=== PATIENT | male | born 1950 | race Caucasian/White ===

== ENCOUNTER 2016-09-14 10:31 | Inpatient (IN) | payer OTHER, MEDICAID ==
[~2016-09-14] VITALS: Ht 165.1 cm; Wt 70.8 kg
[2016-09-14] VITALS (17 sets, daily range): BP systolic 91–130; BP diastolic 57–77; PULSE 69–82; RESP 12–21; Ht 165.1 cm; Wt 70.8 kg
[~2016-09-14 10:31] MED LIST: DEXAMETHASONE 4 MG/ML 1 ML INJ ONE; FENTAnyl 50 MCG/ML VIAL ONE; GLYCOPYRROLATE 0.4 MG INJ ONE; LIDOCAINE 2% (SDV) 5 ML INJ ONE; MIDAZOLAM 1 MG/ML 2 ML INJ ONE; NEOSTIGMINE 3 MG/3 ML SYRINGE ONE; ONDANSETRON 4 MG INJ ONE; PROPOFOL 20 ML ONE; ROCURONIUM 50 MG INJ ONE; morphine SULFATE/PF (10 MG/10 ML) INJ ONE
[2016-09-14] MEDS ORDERED: OXYB5TAB7 PO (11:17)
[2016-09-14] MEDS ORDERED: CIPR500T4 PO (11:18)
[2016-09-14] MEDS ORDERED: ALLO300T2 PO (11:19)
[2016-09-14] MEDS ORDERED: LISI40TA9 PO (11:19)
[2016-09-14] MEDS ORDERED: FINA5TAB4 PO (11:20)
[2016-09-14] MEDS ORDERED: AMLO5TAB4 PO (11:20)
[2016-09-14] MEDS ORDERED: ATOR40TA68 PO (11:21)
[2016-09-14] MEDS ORDERED: CEFAZOLIN 2 GM/50 ML (PMX) 50 ML IVPB SCH (12:00)
[2016-09-14] MEDS ORDERED: CIPROFLOXACIN 400MG/D5W 200 ML ONE (12:27)
--- NOTE | 2016-09-14 12:28 | HPN ---
Date/Time of Note Date/Time of Note DATE: 09/14/16 TIME: 12:28 Interval H&P Admission Note Pt. seen H&P reviewed: No system changes BUCK DAVIS MD Sep 14, 2016 12:28
[2016-09-14] MEDS ORDERED: CIPROFLOXACIN 400MG/D5W 200 ML IVPB ONE (12:30)
[2016-09-14] MEDS ORDERED: DEXTROSE 5%-0.45% NACL 1,000 ML IV SCH (14:43)
--- NOTE | 2016-09-14 16:08 | OPR ---
DATE OF OPERATION: 09/14/2016 PREOPERATIVE DIAGNOSIS: Benign prostatic hypertrophy and urinary retention, and the patient does yancey ve a history of rectal cancer, underwent chemoradiation and awaiting surgery in about a month. POSTOPERATIVE DIAGNOSIS: Benign prostatic hypertrophy and urinary retention, and the patient does h ave a history of rectal cancer, underwent chemoradiation and awaiting surgery in about a month. OPERATION PERFORMED: Transurethral resection of the prostate. TECHNIQUE: The patient was brought to the operating room. General anesthesia was induced. The pat ient was positioned in the lithotomy position and given 400 mg of Cipro IV at the start of the proce dure. Time out was done. The patient was identified by his name, date, and the procedure. T hen, the Aggarwal catheter that he had was removed and the genital area was prepped and draped in the u sual sterile manner. The urethra was then dilated with the [place] dilator up to #30 Taj[place]. The #26 Taj[place] resectoscope sheath was introduced under direct vision through the penile urethra all th e way to the bladder. The prostate was found to be enlarged and obstructing and the ureteral orific es were identified and they were away from the area to resect. He did have bladder trabeculations. Then, the prostate was resected starting with the median lobe between the 5 and 7 o'clock position, then the left lateral lobe between the 5 and 12 o'clock position, and then the right lateral wall a nd the right lateral lobe, and then the anterior lobe. Then, I did check the apical area and resect ed any tissue that is obstructing. Then I did use the button to smooth out the resected area. Good hemostasis was obtained. At the end of the procedure, there were no prostatic chips in the bladder and the hemostasis was very good. At that moment I removed the resectoscope and inserted a Aggarwal c atheter 24 Tajik 3-way and inflated the balloon with 60 mL of sterile water, connected the Aggarwal to a drainage bag and started continuous bladder irrigation in the operating room. The patient transf erred to recovery room in stable and satisfactory condition. Dictated By: BUCK AVILA/DANICA Conf#: [id number] DID#: [id number]
--- NOTE | 2016-09-14 16:16 | HP ---
Date/Time of Note Date/Time of Note DATE: 09/14/16 TIME: 16:10 Assessment/Plan VTE Prophylaxis VTE Prophylaxis Intervention: SCD's Lines/Catheters [facility] IV Assessment/Plan Chief Complaint/Hosp Course Assessment and plan 1. BPH. Patient status post TURP procedure. Continue postop care. Analgesics as needed. Follow-up with urologist recommendations. Empirically on ciprofloxacin 2. Essential hypertension. Continue antihypertensives and adjust as needed. Stable at present. 3. Dyslipidemia. Follow-up on fasting lipid panel. Continue on statin medication for now. 4. History of gout. Continue on allopurinol Admission Process time: 40 minutes Discussed plan of care with Dr. Oquendo Problems: HPI/ROS Admit Date/Time Admit Date/Time Sep 14, 2016 at 10:31 Hx of Present Illness This is a 66-year-old male with past medical history of BPH, hypertension, disc edema, cancer with recent chemotherapy and radiation in July 2016 (seen by Dr. Zach Horta) who does follow up with Dr. Mayorga as outpatient for his BPH he did come to [facility] for elective surgery for TURP. Patient seen in recovery. Vital signs remained stable. No apparent distress noted. He did tolerate procedure well. Patient is remained afebrile. Cultures pending at this time. We will evaluate him for the aformentiond issues. PMH/Family/Social Past Medical History BPH, hypertension, disc edema, cancer with recent chemotherapy and radiation. Patient also does report having some type of colorectal surgery (details of this are unknown at this time) Family History Significant Family History: no pertinent family hx Social History Alcohol Use: occasionally Smoking Status: Former smoker Drug Use: none Exam/Review of Systems Vital Signs Vitals Vital Signs Date Time Temp Pulse Resp B/P Pulse Ox O2 Delivery O2 Flow Rate FiO2 09/14/16 15:35 80 18 105/70 100 Room Air 09/14/16 15:06 98.7 Exam Exam General: Comfortable at present. Alert and oriented Eyes: Pupils equal round. Anicteric sclera Neck: Supple nontender, no JVD Cardiac: Regular rate. S1-S2 auscultated Pulmonary: No adventitious lung sound GI: Soft nontender nondistended Genitourinary: Aggarwal catheter in place Extremities: No edema noted bilateral lower extremity Skin: CDI. Noted with vitiligo Neurologic: AL O 4 Medications Medications Current Medications Dextrose/Sodium Chloride (D5-1/2ns) 1,000 ml @ 50 mls/hr Q20H IV ; Start at 14:43 Allopurinol (Zyloprim) 300 mg DAILY PO ; Start 09/14/16 at 15:00 Amlodipine Besylate (Norvasc) 5 mg DAILY PO ; Start 09/14/16 at 15:00 Atorvastatin Calcium (Lipitor) 40 mg QHS PO ; Start 09/14/16 at 21:00 Ciprofloxacin (Cipro) 500 mg BID@06,18 PO ; Start 09/14/16 at 18:00 Lisinopril (Zestril) 40 mg DAILY PO ; Start 09/14/16 at 15:00 Ondansetron HCl (Zofran Inj) 4 mg Q6H PRN IV NAUSEA AND/OR VOMITING; Start 03/23 at 16:30 Acetaminophen (Tylenol Tab) 650 mg Q6H PRN PO PAIN LEVEL 1-3 OR FEVER; Start at 16:30 Acetaminophen (Tylenol Supp) 650 mg Q6H PRN [place] PAIN LEVEL 1-3 OR FEVER; Start 09/14/16 at 16:30 Acetaminophen/ Hydrocodone Bitart ([place] (5/325)) 1 tab Q6H PRN PO MODERATE PAIN LEVEL 4-6; Start 09/14/16 at 16:30 Acetaminophen/ Hydrocodone Bitart ([place] (5/325)) 2 tab Q6H PRN PO SEVERE PAIN LEVEL 7-10; Start 09/14/16 at 16:30 Morphine Sulfate (morphine) 2 mg Q4H PRN IV SEVERE PAIN LEVEL 7-10; Start 09/14 at 16:30 Docusate Sodium (Colace) 100 mg Q12H PRN PO CONSTIPATION; Start 09/14/16 at 16: 30 Magnesium Hydroxide (Milk Of Mag) 30 ml DAILY PRN PO CONSTIPATION; Start at 16:30 Bisacodyl (Dulcolax Supp) 10 mg DAILY PRN [place] CONSTIPATION; Start 09/14/16 at 16 :30 Famotidine (Pepcid Iv) 20 mg Q12 IV ; Start 09/14/16 at 21:00 DEMAR THOMPSON Sep 14, 2016 16:16
[2016-09-14] MEDS ORDERED: DOCUSATE SODIUM 100 MG CAP PO PRN (16:30)
[2016-09-14] MEDS ORDERED: BISACODYL 10 MG SUPP PR PRN (16:30)
[2016-09-14] MEDS ORDERED: ACETAMINOPHEN 325 MG TAB PO PRN (16:30)
[2016-09-14] MEDS ORDERED: ONDANSETRON 4 MG INJ IV PRN (16:30)
[2016-09-14] MEDS ORDERED: morphine 2 MG INJ IV PRN (16:30)
[2016-09-14] MEDS ORDERED: NACL 0.9% 3 ML SYG IV SCH (16:30)
[2016-09-14] MEDS ORDERED: ACETAMINOPHEN 650 MG SUPP PR PRN (16:30)
[2016-09-14] MEDS ORDERED: MAGNESIUM HYDROXIDE 30ML CUP PO PRN (16:30)
[2016-09-14] MEDS ORDERED: HYDROCODONE/APAP (5/325) TAB PO PRN ×2 (16:30)
[2016-09-14] MEDS: LISINOPRIL 20 MG TAB PO SCH (17:29)
[2016-09-14] MEDS: ALLOPURINOL 300 MG TAB PO SCH (17:29)
[2016-09-14] MEDS: AMLODIPINE 5 MG TAB PO SCH (17:30)
[2016-09-14] MEDS: CIPROFLOXACIN 500 MG TAB PO SCH (17:30)
[2016-09-14] MEDS: FAMOTIDINE 20 MG INJ IV SCH (21:38)
[2016-09-14] MEDS: ATORVASTATIN 40 MG TAB PO SCH (21:39)
[2016-09-14] MEDS ORDERED: SEVOFLURANE 15 MIN INH ONE (22:34)
[2016-09-14] MEDS ORDERED: SUCCINYLCHOLINE CHLORIDE 100 MG/5 ML SYG IV ONE (22:34)
[2016-09-15] MEDS: CIPROFLOXACIN 500 MG TAB PO SCH ×2 (05:43→17:13)
[2016-09-15 05:52] VITALS: BP 112/75; PULSE 63; RESP 20
[2016-09-15 06:17] LABS: ADD SCAN DIFF NO
[2016-09-15 06:24] LABS: ABNORMAL IP MESSAGE 1; BASOPHILS % 0.1 % (0.0-2.0); HEMATOCRIT 31.9 % (42.0-52.0); HEMOGLOBIN 9.6 g/dl (14.0-18.0); LYMPHOCYTES # 0.3 10^3/ul (0.8-2.9); LYMPHOCYTES % 4.1 % (15.0-51.0); MEAN CORPUSCULAR HGB CONC 30.1 g/dl (32.0-37.0); MEAN CORPUSCULAR VOLUME 89.9 fl (82.0-101.0); MEAN PLATELET VOLUME 10.7 fl (7.4-10.4); MONOCYTE # 0.3 10^3/ul (0.3-0.9); NEUTROPHIL # 6.7 10^3/ul (1.6-7.5); NEUTROPHILS % 91.5 % (39.0-77.0); PLATELET COUNT 313 10^3/UL (140-415); RED BLOOD COUNT 3.55 10^6/ul (4.70-6.10); RED CELL DISTRIBUTION WIDTH 16.2 % (11.5-14.5); WHITE BLOOD COUNT 7.3 10^3/ul (4.8-10.8)
[2016-09-15 06:41] LABS: ALBUMIN/GLOBULIN RATIO 0.9; BILIRUBIN,INDIRECT 0.2 mg/dl (0-1.1); BILIRUBIN,TOTAL 0.2 mg/dl (0.2-1.3); CREATININE 0.73 mg/dl (0.61-1.24); MAGNESIUM 1.9 mg/dl (1.7-2.5); PHOSPHORUS 4.1 mg/dl (2.5-4.9); POTASSIUM 5.2 mmol/L (3.5-5.1); TOTAL PROTEIN 6.3 g/dl (6.1-8.1)
[2016-09-15 06:42] LABS: CHOL/HDL RATIO 2.7 RATIO
[2016-09-15 06:58] LABS: T3 UPTAKE 36.3 % (23.5-40.5)
[2016-09-15 07:12] LABS: THYROID STIMULATING HORMONE 0.46 MIU/L (0.465-4.680)
[2016-09-15 07:42] VITALS: BP 109/75; RESP 20
--- NOTE | 2016-09-15 08:53 | PN ---
DATE: 09/15/2016 SUBJECTIVE: Patient is feeling better, has no complaint. His is post transurethral resection of th e prostate yesterday. OBJECTIVE VITAL SIGNS: His temperature is 98.6, blood pressure 109/75, pulse is 71, respiration is 20. ABDOMEN: Soft. Aggarwal catheter is draining clear urine with continuous bladder irrigation. LABORATORY DATA: His CBC shows a white count 7.3, hemoglobin 9.6, hematocrit 31.9. BUN is 10, crea tinine 0.73. The sodium 141, potassium 5.2, chloride 108, CO2 26. The patient is doing well, therefore we will stop the continuous irrigation, encourage p.o. fluids, ambulate him, and change his IV to Hep-Lock. The patient is stable. When the urine remains reasona julio clear, then he could probably go home later tomorrow. Dictated By: BUCK AVILA/DANICA Conf#: [id number] DID#: [id number]
[2016-09-15] MEDS: FAMOTIDINE 20 MG INJ IV SCH (09:11)
[2016-09-15] MEDS: FERROUS SULFATE (EC) 325 MG TAB PO SCH ×2 (09:12→20:17)
[2016-09-15] MEDS: ALLOPURINOL 300 MG TAB PO SCH (09:13)
[2016-09-15] MEDS: AMLODIPINE 5 MG TAB PO SCH (09:14)
[2016-09-15] MEDS: LISINOPRIL 20 MG TAB PO SCH (09:14)
[2016-09-15 09:15] VITALS: BP 110/72; PULSE 69
[2016-09-15 14:47] LABS: CALCIUM 9.2 mg/dl (8.4-10.2); CREATININE 0.8 mg/dl (0.61-1.24); POTASSIUM 4.5 mmol/L (3.5-5.1)
--- NOTE | 2016-09-15 15:47 | PN ---
Date/Time of Note Date/Time of Note DATE: 09/15/16 TIME: 15:45 Assessment/Plan VTE Prophylaxis VTE Prophylaxis Intervention: SCD's Lines/Catheters IV Catheter Type (from Nrs): Peripheral IV Urinary Cath still in place: Yes Reason Cath still needed: urinary retention Assessment/Plan Chief Complaint/Hosp Course Assessment and plan 1. BPH. Patient status post TURP procedure. Continue postop care. Analgesics as needed. Follow-up with urologist recommendations. Empirically on ciprofloxacin 2. Essential hypertension. Continue antihypertensives and adjust as needed. Stable at present. 3. Dyslipidemia. Continue on statin medication 4. History of gout. Continue on allopurinol Plan to discharge home tomorrow if cleared by urologist Problems: Subjective 24 Hr Interval Summary Free Text/Dictation Patient denies any chest pain or shortness of breath No nausea vomiting diarrhea Aggarwal in place with clear urine no evidence of hematuria Exam/Review of Systems Vital Signs Vitals Vital Signs Date Time Temp Pulse Resp B/P Pulse Ox O2 Delivery O2 Flow Rate FiO2 09/15/16 09:15 69 110/72 09/15/16 07:42 98.6 20 96 09/15/16 05:52 Room Air Intake and Output 09/14/16 09/14/16 09/15/16 15:00 23:00 07:00 Intake Total 1800 ml 1140 ml 1280 ml Output Total 1603 ml 4200 ml 2300 ml Balance 197 ml -3060 ml -1020 ml Exam General: The patient is well-developed, Not in acute distress. HEENT: Atraumatic, normocephalic. The pupils are equal and round . Neck: Supple with full range of motion. Chest: Normal expansion of the thorax during inspiration Lungs: Clear to auscultation bilaterally Heart: Normal S1-S2, Regular rhythm and rate. Abdomen: Soft , nontender, nondistended , bowel sounds are present. Extremities: Normal to inspection, no edema no cyanosis Neurologic: Normal mental status,The patient is awake, alert and oriented . Genitourinary: Aggarwal in place, clear urine output Results Result Diagram: 09/15/16 0547 09/15/16 1425 Results 24 hrs Laboratory Tests Test 09/15/16 05:47 09/15/16 14:25 White Blood Count 7.3 Red Blood Count 3.55 L Hemoglobin 9.6 L Hematocrit 31.9 L Mean Corpuscular Volume 89.9 Mean Corpuscular Hemoglobin 27.0 L Mean Corpuscular Hemoglobin Concent 30.1 L Red Cell Distribution Width 16.2 H Platelet Count 313 Mean Platelet Volume 10.7 H Neutrophils % 91.5 H Lymphocytes % 4.1 L Monocytes % 4.0 Eosinophils % 0.0 Basophils % 0.1 Nucleated Red Blood Cells % 0.0 Neutrophils # 6.7 Lymphocytes # 0.3 L Monocytes # 0.3 Eosinophils # 0.0 Basophils # 0.0 Nucleated Red Blood Cells # 0.0 Sodium Level 141 138 Potassium Level 5.2 H 4.5 Chloride Level 108 101 Carbon Dioxide Level 26 26 Anion Gap 12 16 Blood Urea Nitrogen 10 11 Creatinine 0.73 0.80 Glucose Level 135 130 Hemoglobin A1c 5.7 Calcium Level 9.0 9.2 Phosphorus Level 4.1 Magnesium Level 1.9 Total Bilirubin 0.2 Direct Bilirubin 0.00 Indirect Bilirubin 0.2 Aspartate Amino Transf (AST/SGOT) 146 H Alanine Aminotransferase (ALT/SGPT) 179 H Alkaline Phosphatase 231 H Total Protein 6.3 Albumin 3.0 L Globulin 3.30 H Albumin/Globulin Ratio 0.90 Triglycerides Level 119 Cholesterol Level 137 LDL Cholesterol, Calculated 63 HDL Cholesterol 50 Cholesterol/HDL Ratio 2.7 Thyroid Stimulating Hormone (TSH) 0.460 L Free Thyroxine Index 2.87 Thyroxine (T4) 7.9 Triiodothyronine (T3) Uptake 36.3 Medications Medications Current Medications Allopurinol (Zyloprim) 300 mg DAILY PO Last administered on 09/15/16 09:13; Admin Dose 300 MG; Start 09/14/16 at 15:00 Amlodipine Besylate (Norvasc) 5 mg DAILY PO Last administered on 09/15/16 09: 14; Admin Dose 5 MG; Start 09/14/16 at 15:00 Atorvastatin Calcium (Lipitor) 40 mg QHS PO Last administered on 09/14/16 21: 39; Admin Dose 40 MG; Start 09/14/16 at 21:00 Ciprofloxacin (Cipro) 500 mg BID@06,18 PO Last administered on 09/15/16 05:43 ; Admin Dose 500 MG; Start 09/14/16 at 18:00 Lisinopril (Zestril) 40 mg DAILY PO Last administered on 09/15/16 09:14; Admin Dose 40 MG; Start 09/14/16 at 15:00 Ondansetron HCl (Zofran Inj) 4 mg Q6H PRN IV NAUSEA AND/OR VOMITING; Start 03/23 at 16:30 Acetaminophen (Tylenol Tab) 650 mg Q6H PRN PO PAIN LEVEL 1-3 OR FEVER; Start at 16:30 Acetaminophen (Tylenol Supp) 650 mg Q6H PRN [place] PAIN LEVEL 1-3 OR FEVER; Start 09/14/16 at 16:30 Acetaminophen/ Hydrocodone Bitart ([place] (5/325)) 1 tab Q6H PRN PO MODERATE PAIN LEVEL 4-6; Start 09/14/16 at 16:30 Acetaminophen/ Hydrocodone Bitart ([place] (5/325)) 2 tab Q6H PRN PO SEVERE PAIN LEVEL 7-10; Start 09/14/16 at 16:30 Morphine Sulfate (morphine) 2 mg Q4H PRN IV SEVERE PAIN LEVEL 7-10; Start 09/14 at 16:30 Docusate Sodium (Colace) 100 mg Q12H PRN PO CONSTIPATION; Start 09/14/16 at 16: 30 Magnesium Hydroxide (Milk Of Mag) 30 ml DAILY PRN PO CONSTIPATION Last administered on 09/15/16 10:38; Admin Dose 30 ML; Start 09/14/16 at 16:30 Bisacodyl (Dulcolax Supp) 10 mg DAILY PRN [place] CONSTIPATION; Start 09/14/16 at 16 :30 Ferrous Sulfate (Ferrous Sulfate (Ec)) 325 mg BID PO Last administered on 09:12; Admin Dose 325 MG; Start 09/15/16 at 09:00 Famotidine (Pepcid) 20 mg BID PO ; Start 09/15/16 at 21:00 HOWIE ROWAN MD Sep 15, 2016 15:47
[2016-09-15 20:14] VITALS: BP 100/64; RESP 20
[2016-09-15] MEDS: ATORVASTATIN 40 MG TAB PO SCH (20:17)
[2016-09-15] MEDS: FAMOTIDINE 20 MG TAB PO SCH (20:18)
[2016-09-16] MEDS: CIPROFLOXACIN 500 MG TAB PO SCH ×2 (05:43→18:43)
[2016-09-16 05:50] LABS: ADD SCAN DIFF NO
[2016-09-16 05:52] LABS: ABNORMAL IP MESSAGE 1; BASOPHIL # 0.1 10^3/ul (0.0-0.1); BASOPHILS % 1.1 % (0.0-2.0); EOSINOPHILS # 0.1 10^3/ul (0.0-0.5); EOSINOPHILS % 1.9 % (0.0-7.0); HEMATOCRIT 29.3 % (42.0-52.0); HEMOGLOBIN 9.2 g/dl (14.0-18.0); LYMPHOCYTES # 0.5 10^3/ul (0.8-2.9); LYMPHOCYTES % 7.9 % (15.0-51.0); MEAN CORPUSCULAR HEMOGLOBIN 27.8 pg (29.0-33.0); MEAN CORPUSCULAR HGB CONC 31.4 g/dl (32.0-37.0); MEAN CORPUSCULAR VOLUME 88.5 fl (82.0-101.0); MEAN PLATELET VOLUME 10.8 fl (7.4-10.4); MONOCYTE # 0.5 10^3/ul (0.3-0.9); MONOCYTES % 8.1 % (0.0-11.0); NEUTROPHIL # 4.6 10^3/ul (1.6-7.5); NEUTROPHILS % 80.6 % (39.0-77.0); PLATELET COUNT 289 10^3/UL (140-415); RED BLOOD COUNT 3.31 10^6/ul (4.70-6.10); RED CELL DISTRIBUTION WIDTH 16.4 % (11.5-14.5); WHITE BLOOD COUNT 5.7 10^3/ul (4.8-10.8)
[2016-09-16 06:15] LABS: POTASSIUM 3.9 mmol/L (3.5-5.1)
[2016-09-16 06:18] LABS: CREATININE 0.75 mg/dl (0.61-1.24)
[2016-09-16 06:19] LABS: CALCIUM 8.6 mg/dl (8.4-10.2)
[2016-09-16 07:45] VITALS: BP 120/73; RESP 18
[2016-09-16] MEDS: FERROUS SULFATE (EC) 325 MG TAB PO SCH (09:05)
[2016-09-16] MEDS: FAMOTIDINE 20 MG TAB PO SCH (09:06)
[2016-09-16] MEDS: ALLOPURINOL 300 MG TAB PO SCH (09:06)
[2016-09-16] MEDS: AMLODIPINE 5 MG TAB PO SCH (09:06)
[2016-09-16] MEDS: LISINOPRIL 20 MG TAB PO SCH (09:06)
--- NOTE | 2016-09-16 09:40 | PN ---
DATE: 09/16/2016 SUBJECTIVE: The patient is alert, awake, and comfortable, denies any pain. He is status post trans urethral resection of the prostate. OBJECTIVE VITAL SIGNS: His temperature is 98.3. The blood pressure 120/73, pulse 75, respirations 18. ABDOMEN: Soft. The Aggarwal catheter is draining clear yellow urine. PLAN: To remove the Aggarwal catheter, I did that, and have him urinate in the urinal and each time he does urinate, and check his postvoid residual and hopefully he will be able to urinate with a minim al postvoid residual and he could go home without the catheter. If on the other hand, he is not abl e to urinate and he still has difficulty emptying his bladder, then we could send him home with the Aggarwal catheter and follow him up in the office. He should continue his Cipro 500 mg twice a day for another week and avoid any constipation. Dictated By: BUCK AVILA/DANICA Conf#: [id number] DID#: [id number]
--- NOTE | 2016-09-16 11:27 | PDOCDIS ---
Discharge Instructions CONDITION Patient Condition: Good HOME CARE INSTRUCTIONS: Special Diet: Regular Diet ACTIVITY: Activity Restrictions: Slowly Increase Activity Rest between Activity Avoid heavy lifting FOLLOW UP/APPOINTMENTS Appointments Follow up with urology as outpatient HOWIE ROWAN MD Sep 16, 2016 11:27
[2016-09-16] MEDS ORDERED: FER325 PO (11:28)
--- NOTE | 2016-09-16 11:53 | DS ---
DATE OF ADMISSION: 09/14/2016 DATE OF DISCHARGE: 09/16/2016 CONSULTANTS: Dr. Kevyn Mayorga PROCEDURE: Transurethral resection of the prostate. DIAGNOSES: 1. Benign prostatic hypertrophy with urinary retention, status post transurethral resection of pros schmitt. 2. History of rectal cancer, status post chemoradiation. 3. Essential hypertension, well controlled on medical management. 4. Dyslipidemia, on statin. 5. Gout, on allopurinol. 6. Anemia, on ferrous sulfate. MEDICATIONS: 1. Ferrous sulfate. 2. Allopurinol. 3. Norvasc. 4. Lipitor. 5. Finasteride. 6. Lisinopril. 7. Oxybutynin. LABORATORIES: Today WBC 5.7, hemoglobin 9.2, hematocrit 29.3, platelets 29. Sodium 143, potassium 3.9, chloride 106, bicarbonate 29, BUN 9, creatinine 0.75, glucose 137, calcium 8.6. Hemoglobin A1c 5.7. HOSPITAL COURSE: This is a 66-year-old gentleman with past medical history of BPH, hypertension, re ctal cancer with recent chemotherapy and radiation in July 2016, seen by Dr. Zach Horta, also follows with Dr. Mayorga as outpatient with BPH, and was found to have benign prostatic hypertrophy, urinary retention, and he was admitted with Dr. Mayorga 09/14/2016 for a transurethral resection of the prostate. The patient was given 400 mg of IV Cipro and started the procedure and had transuret hral resection of the prostate in which he tolerated the procedure and was taken to recovery room an d was taken to med/surg where he was continued to be followed up by medical team and Dr. Mayorga. H is hemoglobin and hematocrit have been stable. He has been placed on pain medication, ciprofloxacin . Has been able to tolerate p.o. intake today. He was seen and evaluated by urology and Aggarwal was discontinued. He has been able to void post removal of the Aggarwal. At this time, the patient's carmen ls are stable with temperature 98.3, pulse 75, respirations 18, blood pressure 120/73, oxygen satura tion 95% on room air. He is medically stable to be discharged home with followup with urology and [facility] physician as outpatient. Waiting for urology clearance for discharge. CONDITION AT TIME OF DISCHARGE: Stable. Dictated By: HOWIE RUIZ/NTS Conf#: [id number] DID#: [id number]
--- NOTE | 2016-09-16 21:41 | PN ---
DATE: 09/16/2016 This is a followup of the morning progress note. The patient did have a Aggarwal catheter that I removed this morning. The patient is status post trans urethral resection of the prostate for urinary retention and he did have also an infection that was treated. Since the Aggarwal catheter was removed, the patient has been voiding every half hour to 1 ho ur, about 50 to 100 mL. Yet, his post void residual has been gradually increasing. In fact, right now as I came to see him, I had him urinate. He voided about 50 mL clear urine, but the post void r esidual was over 400. So, I went ahead and inserted a 16-[place] Aggarwal catheter and connected to a d rainage bag and the patient could go home with the Aggarwal catheter and a leg bag. I wrote him a pres cription for urecholine 10 mg 1 tablet 3 times a day. I wrote 100 tablets. Also, I wrote Cipro 500 mg 1 tablet b.i.d. for 7 days. The patient is to see me in the office in about 1 week for a second try at removing the catheter and see if he does void. Dictated By: BUCK AVILA/DANICA Conf#: [id number] DID#: [id number]
== END 2016-09-16 19:00 | disposition home or self-care (01) | DRG 713 ==
LOC: REC 10:31 → MS2 16:40
PROVIDERS: ADMIT Urology; ATTEND Urology
PROC: 0VT08ZZ Resection of Prostate, Via Natural or Artificial Opening Endoscopic (ICD-10-PCS; principal; 2016-09-14 12:30)
DX: N40.0 Benign prostatic hyperplasia without lower urinary tract symptoms (principal); C78.5 Secondary malignant neoplasm of large intestine and rectum; C80.1 Malignant (primary) neoplasm, unspecified; I10 Essential (primary) hypertension; E78.5 Hyperlipidemia, unspecified; D64.9 Anemia, unspecified; M10.9 Gout, unspecified
CPT/HCPCS: 80048; 80053; 80061; 83036; 83735; 84100; 84436; 84443; 84479; 85025; 86850; 86900; 86901; 87086; 88309; J0330; J0744; J1100; J2250; J2274; J2405; J2710; J3010; J7042